=== PATIENT | female | born 1960 | race Caucasian/White ===

== ENCOUNTER 2018-12-12 09:37 | Day surgery (SDC) | payer MEDICARE, OTHER ==
[2018-12-10 13:06] LABS: MICROSCOPIC NOT IND
[2018-12-10 13:15] LABS: CULTURE INDICATED? NO
[~2018-12-12] VITALS: Ht 165.1 cm; Wt 103.0 kg
[~2018-12-12 09:37] MED LIST: ATOR10TA9 PO; BUPIVACAINE/PF-EPI 0.5% 1:200K ONE; BUPROPION PO; CLON1TAB11 PO; CYAN100072 PO; DIVA-59 PO; DULO30CA2 PO; FLUT9.9S NS; HEPARIN 1,000 UNITS/ML, 10ML ONE; HEPARIN 5,000 UNITS/ML, 1ML ONE; MELO15TA24 PO; NATA300V2 IV; RIVA6CAP3 PO; TRAZ-137 PO
[2018-12-12 10:39] VITALS: BP 120/80
[2018-12-12] MEDS ORDERED: FENTANYL PF 100 MCG/2ML ONE ×2 (11:01→12:23)
[2018-12-12] MEDS ORDERED: MIDAZOLAM 1 MG/ML, 2ML ONE (11:01)
[2018-12-12] MEDS ORDERED: DEXAMETHASONE 4 MG/ML, 1ML ONE ×2 (11:50)
[2018-12-12] MEDS ORDERED: ONDANSETRON 2MG/ML, 2ML ONE (11:50)
[2018-12-12] MEDS ORDERED: CEFAZOLIN 1,000 MG ONE (11:50)
[2018-12-12] MEDS ORDERED: SUCCINYLCHOLINE 20 MG/ML, 10ML ONE (11:50)
[2018-12-12] MEDS ORDERED: PROPOFOL 10 MG/ML, 20ML ONE (11:50)
[2018-12-12] MEDS ORDERED: GLYCOPYRROLATE 0.2MG/1ML, 5ML ONE (11:50)
[2018-12-12] MEDS ORDERED: ROCURONIUM 10MG/ML,5ML ONE (11:50)
[2018-12-12] MEDS ORDERED: NEOSTIGMINE 1 MG/ML, 10ML ONE (11:50)
[2018-12-12] MEDS ORDERED: SUGAMMADEX 200 MG/2 ML IVPush ONE (11:51)
[2018-12-12] MEDS ORDERED: LABETALOL 5MG/ML, 20ML IV PRN (12:00)
[2018-12-12] MEDS ORDERED: PROMETHAZINE 25 MG/ML, 1ML IV PRN (12:00)
[2018-12-12] MEDS ORDERED: OXYcodone 5 MG/5 ML ORAL.SOL UDC PO PRN (12:00)
[2018-12-12] MEDS ORDERED: MEPERIDINE/PF 25MG/0.5ML IVPush PRN (12:00)
[2018-12-12] MEDS ORDERED: KETOROLAC 30 MG/1 ML IV PRN (12:00)
[2018-12-12] MEDS ORDERED: DIAZEPAM 5 MG/ML, 2ML IVPush PRN (12:00)
[2018-12-12] MEDS ORDERED: HYDROmorphone 2 MG/ML, 1ML IVPush PRN (12:00)
[2018-12-12] MEDS ORDERED: ACETAMINOPHEN 325 MG TABLET PO PRN (12:00)
[2018-12-12] MEDS ORDERED: hydrALAzine 20 MG/ML, 1ML IV PRN (12:00)
[2018-12-12] MEDS ORDERED: ALBUTEROL SULFATE 2.5 MG/3 ML NPPB PRN (12:00)
[2018-12-12] MEDS ORDERED: OXYcodone 5 MG/5 ML ORAL.SOL UDC ONE (12:23)
[2018-12-12] MEDS: FENTANYL PF 100 MCG/2ML IV PRN ×3 (12:25→12:35)
[2018-12-12] MEDS ORDERED: MEPERIDINE/PF 25MG/ML,1ML ONE (12:38)
== END 2018-12-12 14:40 | disposition home or self-care (01) ==
LOC: OUT 09:37
PROVIDERS: ATTEND Surgery
DX: Z45.2 Encounter for adjustment and management of vascular access device (principal); G35 Multiple sclerosis; F31.9 Bipolar disorder, unspecified; E78.5 Hyperlipidemia, unspecified; Z90.710 Acquired absence of both cervix and uterus; Z98.890 Other specified postprocedural states; Z88.5 Allergy status to narcotic agent; Z88.8 Allergy status to other drugs, medicaments and biological substances; Z91.041 Radiographic dye allergy status; Z85.3 Personal history of malignant neoplasm of breast; Z85.828 Personal history of other malignant neoplasm of skin
CPT/HCPCS: 36561; 77001; 81003; 93005; C1788; J0690; J1100; J1644; J2175; J2250; J2405; J2704; J3010; J2710; J0330